=== PATIENT | male | born 1995 | race Caucasian/White ===

== ENCOUNTER → 2020-10-05 | Outpatient (CLI) | payer BC ==
[2020-10-05 11:11] LABS: HEMOGLOBIN 15.4 gm/dl (14.0-17.5); RED BLOOD COUNT 4.87 M/UL (4.20-5.50); WHITE BLOOD COUNT 6.3 K/UL (4.5-11.0)
[2020-10-05 11:35] LABS: BUN/CREATININE RATIO 17 (0-10)
== END ==
LOC: LAB 10:15
PROVIDERS: Nurse Practitioner Family
DX: Z13.220 Encounter for screening for lipoid disorders (principal); R10.9 Unspecified abdominal pain; E53.8 Deficiency of other specified B group vitamins; E55.9 Vitamin D deficiency, unspecified; R12 Heartburn
CPT/HCPCS: 36415; 80053; 80061; 81001; 82150; 82607; 82746; 83690; 84439; 84443; 85025

== ENCOUNTER 2021-05-13 01:42 | Emergency (ER) | payer BC ==
[2021-05-13 02:08] LABS: HEMOGLOBIN 16.2 gm/dl (14.0-17.5); RED BLOOD COUNT 5.09 M/UL (4.20-5.50); WHITE BLOOD COUNT 10.5 K/UL (4.5-11.0)
[2021-05-13 02:34] LABS: BUN/CREATININE RATIO 17 (0-10)
[2021-05-13] MEDS ORDERED: ZOFRAN ODT 4 MG4 MG PO (06:52)
== END 2021-05-13 06:54 | disposition home or self-care (01) ==
LOC: ER1 01:42
PROVIDERS: Family Medicine
DX: R07.9 Chest pain, unspecified (principal); R42 Dizziness and giddiness; R11.0 Nausea; R06.00 Dyspnea, unspecified; Z86.16 Personal history of COVID-19
CPT/HCPCS: 71045; 80053; 82550; 82553; 83735; 83874; 84439; 84443; 84484; 85025; 85379; 93005; 96374; 99285; J2405; J7030

== ENCOUNTER → 2021-06-12 | Outpatient (CLI) | payer BC ==
[~2021-06-12] MED LIST: ZOFRAN ODT 4 MG4 MG PO
== END ==
LOC: HEART 5 15:00
DX: R00.2 Palpitations (principal); R07.89 Other chest pain; I08.1 Rheumatic disorders of both mitral and tricuspid valves
CPT/HCPCS: 93306